=== PATIENT | female | born 1965 | race Caucasian/White ===

== ENCOUNTER → 2023-08-01 18:44 | Outpatient (REF) | payer BC, SELFPAY | LOC: WDC 18:44 | PROVIDERS: ATTENDING PHYSICIAN Obstetrics & Gynecology; FAMILY PHYSICIAN Family Medicine | DX: Z12.31 Encounter for screening mammogram for malignant neoplasm of breast (principal) | CPT/HCPCS: 77063; 77067 ==

== ENCOUNTER 2023-10-21 12:56 | Emergency (ER) | payer BC, SELFPAY ==
[2023-10-21 12:59] VITALS: BP 119/82
[2023-10-21] MEDS: TYLENOL 1000 MG PO (14:17)
[2023-10-21 15:20] VITALS: BP 107/56
--- NOTE | 2023-10-21 15:23 | ED.GENMED ---
History of Present Illness
General
Chief Complaint: Head Injury
Source: patient, records and family
Exam Limitations: none
Time Seen by Provider: 10/21/23 13:23
Nursing documentation reviewed up to this point in time: agreed with
History of Present Illness
History of Present Illness:
Patient is a 58-year-old female who presents to the emergency department after tripping on her steps and striking her right forehead on a brick sill of the door. Patient complains of headache with tingling from the front to the back of her scalp.
Patient denies any neck or back pain. Patient denies loss of consciousness. Patient denies any visual or speech difficulties. Patient denies any focal weakness or ataxia. Patient denies syncope. Patient denies any other complaints.
Past History
Past History
ED Past Medical History: None
Social History
Tobacco: Non-smoker
Alcohol: Occasional
Drug: None
Personal:
Living: with family
Review of Systems
Review of Systems
All Other Systems: Not applicable
Phy Exam
Physical Exam
Physical Exam:
Physical Exam
General: No apparent mild distress, alert and appropriate, well nourished, well hydrated
HENT: Normocephalic with right frontal ecchymosis abrasion and tenderness, supple with no tracheal deviation or contusion
Eyes: Clear sclera, conjuctiva without injection, extraocular muscles intact, visual loya intact, pupils equal reactive to light
Heart: Regular rhythm and rate. No S3, S4. No murmur.
Lungs: No respiratory distress, no stridor, lung sounds clear
Neuro: Alert and oriented x 3, CN II - XII intact, no motor focality, no cerebellar dysfunction
Skin: As stated above
Psychiatric: well kept. interactive and cooperative
Extremities: No edema, cyanosis, tenderness
Musculoskeletal: No cervical, thoracic or lumbar spine tenderness
Course
Orders/Labs/Results
Orders:
Orders
10/21/23 13:52
CT Head W/o Iv Contrast Urgent
Comment:
Reason For Exam: struck r forehead on brick steps in fall
Acetaminophen [Tylenol] 1,000 mg PO NOW STA
Vital Signs
Initial and Last Documented VS:
Initial Vital Signs
Temp Pulse Resp BP Pulse Ox
97.1 F 73 17 119/82 96
10/21/23 12:59 10/21/23 12:59 10/21/23 12:59 10/21/23 12:59 10/21/23 12:59
Last Documented Vital Signs
Temp Pulse Resp BP Pulse Ox
97.1 F 73 17 119/82 96
10/21/23 12:59 10/21/23 12:59 10/21/23 12:59 10/21/23 12:59 10/21/23 12:59
*Radiology
Radiology exam reviewed: radiology read reviewed (neg ct)
*Pulse Oximetry
Patient hypoxic: no
*EKG
Interpreted by ED Provider?: NA
*Hematology Nurse Educator Interpretation
Rate: Hematology Nurse Educator- N/A
*Critical Care Note
Total Time (30-74mins, 75-104mins- exclusive of procedures): Not Applicable
ED Attending Note
-
Portions of this chart may have been created with voice recognition software.� Occasional wrong word or��sound alike� substitutions may have occurred due to the inherent limitations of voice recognition software.
Discharge Plan
Departure
Patient Disposition: Home (Routine Discharge)
Date of Disposition: 10/21/23
Time of Disposition: 15:44
Patient with high blood pressure during this ER visit?: No
Condition: Good
Covid-19: Not Applicable
Discharge Problem:
Forehead contusion
Instructions: Head Injury in Adults (DC), Minor Head Injury (DC)
Prescriptions:
No Action
amoxicillin-pot clavulanate [Augmentin] 1 EACH tablet
1 ea PO BID Qty: 20 0RF
Rx Instructions:
Take with food
Referrals:
Leeanne Otoole MD [Family Provider] - As needed
Activity Restrictions/Additional Instructions:
Acetaminophen 650 mg or ibuprofen 400 mg every 6 hours for pain. Use ice to the area for 20 to 30 minutes 4-5 times a day. Any increasing pain or disorientation please return immediately
Interventions
Interventions:
*Risk Screen - Suicide Last Done: 10/21/23 12:59
*General Assessment Last Done: 10/21/23 12:59
*Neglect/Abuse Screening Last Done: 10/21/23 12:59
ED- Neurological Assessment Last Done: 10/21/23 14:50
ED-Skin Assessment Last Done: 10/21/23 14:50
Discharge Date and Time
Print Language: HEBREW
== END 2023-10-21 15:30 | disposition home or self-care (01) ==
LOC: EMR 12:56
PROVIDERS: EMERGENCY PHYSICIAN Emergency Medicine; FAMILY PHYSICIAN Family Medicine
DX: S00.83XA Contusion of other part of head, initial encounter (principal); W19.XXXA Unspecified fall, initial encounter
CPT/HCPCS: 99284; 70450

== ENCOUNTER → 2024-06-29 07:12 | Outpatient (REF) | payer BC, SELFPAY ==
[2024-06-29 08:39] LABS: % Basophils 1.6 % (0-2); % Immature Granulocytes 0.2 % (0-0.5); % Lymphocytes 42.2 % (20.5-51.1); % Monocytes 8.9 % (1.7-9.3); % Neutrophils 45.1 % (42.2-75.2); Absolute Basophils 0.1 10^3/uL (0-0.2); Absolute Eosinophils 0.1 10^3/uL (0-0.7); Absolute Lymphocytes 2.1 10^3/uL (1.2-3.4); Absolute Monocytes 0.4 10^3/uL (0.1-0.6); Absolute Neutrophils 2.2 10^3/uL (1.4-6.5); Hematocrit 40.8 % (37.0-47.0); Hemoglobin 14.4 g/dL (12.0-16.0); Mean Corp Hgb Conc. 35.3 g/dL (33.0-37.0); Mean Corpuscular Hgb 33.8 pg (27.0-31.0); Mean Corpuscular Volume 95.8 fL (81.0-99.0); Mean Platelet Volume 10.1 fL (7.4-10.4); Nucleated Red Blood Cells % 0 %; Platelet Count 272 10^3/uL (130-400); Red Blood Cell Count 4.26 10^6/uL (4.20-5.40); Red Cell Dist. Width 11.9 % (11.5-14.5)
[2024-06-29 09:02] LABS: Blood Urea Nitrogen 15 mg/dl (7-17); Calcium 9.9 mg/dl (8.4-10.2); Carbon Dioxide 29 mmol/L (22-30); Chloride 103 mmol/L (98-107); Glucose 79 mg/dl (70-99); Potassium 4.6 mmol/L (3.5-5.1); Sodium 139 mmol/L (135-145); eGFR > 60.00
== END ==
LOC: REG 07:12
PROVIDERS: ATTENDING PHYSICIAN Orthopaedic Surgery; FAMILY PHYSICIAN Family Medicine
DX: Z01.818 Encounter for other preprocedural examination (principal)
CPT/HCPCS: 36415; 80048; 85025; 93005

== ENCOUNTER → 2024-08-26 10:56 | Outpatient (REF) | payer BC, SELFPAY | LOC: WDC 10:56 | PROVIDERS: ATTENDING PHYSICIAN Family Medicine | DX: Z12.31 Encounter for screening mammogram for malignant neoplasm of breast (principal) | CPT/HCPCS: 77063; 77067 ==

== ENCOUNTER → 2025-02-14 07:09 | Outpatient (REF) | payer BC, SELFPAY | LOC: RCS 07:09 | PROVIDERS: ATTENDING PHYSICIAN Internal Medicine Cardiovascular Disease; FAMILY PHYSICIAN Family Medicine | DX: R42 Dizziness and giddiness (principal); R23.1 Pallor | CPT/HCPCS: 93306 ==

== ENCOUNTER → 2025-02-17 07:41 | Outpatient (REF) | payer BC, SELFPAY | LOC: RCS 07:41 | PROVIDERS: ATTENDING PHYSICIAN Internal Medicine Cardiovascular Disease; FAMILY PHYSICIAN Family Medicine | DX: R42 Dizziness and giddiness (principal); R23.1 Pallor | CPT/HCPCS: 93017 ==